=== PATIENT | female | born 1990 | race Caucasian/White ===

== ENCOUNTER 2018-02-01 19:32 | Emergency (ER) | payer OTHER ==
[~2018-02-01] VITALS: Ht 190.5 cm; Wt 138.3 kg
[2018-02-01 19:59] LABS: ABSOLUTE BASOPHILS 0.1 thou/uL (0.0-0.2); ABSOLUTE EOSINOPHILS 0.2 thou/uL (0.0-0.7); ABSOLUTE LYMPHOCYTES 3.1 thou/uL (0.8-5.3); ABSOLUTE MONOCYTES 0.6 thou/uL (0.0-1.2); ABSOLUTE NEUTROPHILS 5.6 thou/uL (1.6-8.1); BASOPHILS 0.9 %; EOSINOPHILS 2.2 %; HEMATOCRIT 39.5 % (37.0-47.0); HEMOGLOBIN 13.3 gm/dL (12.0-15.0); MCH 29.4 pg (26.0-34.0); MCHC 33.8 g/dL (28.0-37.0); MCV 87.2 fL (80.0-100.0); MONOCYTES 6.4 %; MPV 7.3 fl. (7.2-11.1); NUCLEATED RBCS 0 /100WBC; PLATELET COUNT* 352 thou/uL (150-400); POLYS 58.5 %; RBC 4.54 mil/uL (4.20-5.00); WBC 9.5 thou/uL (4.0-11.0)
[2018-02-01] MEDS ORDERED: MACROBID 100 M100 M2 PO (19:59)
[2018-02-01] MEDS ORDERED: MOBIC15 MG PO (19:59)
[2018-02-01 20:11] LABS: CALCIUM 8.4 mg/dL (8.5-10.1); CREATININE 0.8 mg/dL (0.6-1.3); POTASSIUM 3.4 mmol/L (3.5-5.1)
[2018-02-01 20:15] LABS: ALBUMIN 3.4 g/dL (3.4-5.0); TOTAL BILIRUBIN 0.9 mg/dL (<0.1-1.0); TOTAL PROTEIN 6.2 g/dL (6.4-8.2)
[2018-02-01 20:18] LABS: URINE BILIRUBIN NEGATIVE (Negative); URINE BLOOD NEGATIVE (Negative); URINE CLARITY CLEAR; URINE COLOR YELLOW; URINE GLUCOSE-RANDOM NEGATIVE (Negative); URINE KETONES NEGATIVE (Negative); URINE LEUKOCYTES-REFLEX NEGATIVE (Negative); URINE NITRITE-REFLEX NEGATIVE (Negative); URINE PROTEIN NEGATIVE (Negative); URINE SPECIFIC GRAVITY 1.025 (1.005-1.030); URINE UROBILINOGEN 0.2 E.U./dl (0.2-1.0)
[2018-02-01] MEDS ORDERED: PREDNISONE50 MG PO (20:51)
[2018-02-01 21:09] VITALS: BP 134/83
== END 2018-02-01 21:10 | disposition home or self-care (01) ==
LOC: M.ERS 19:32
PROVIDERS: Emergency Medicine
DX: T78.49XA Other allergy, initial encounter (principal); E28.2 Polycystic ovarian syndrome; E11.9 Type 2 diabetes mellitus without complications; Z90.711 Acquired absence of uterus with remaining cervical stump; Z88.1 Allergy status to other antibiotic agents; Z88.0 Allergy status to penicillin; Z88.8 Allergy status to other drugs, medicaments and biological substances; X58.XXXA Exposure to other specified factors, initial encounter

== ENCOUNTER 2018-03-05 22:09 | Emergency (ER) | payer OTHER ==
[~2018-03-05] VITALS: Ht 190.5 cm; Wt 140.6 kg
[~2018-03-05 22:09] MED LIST: MACROBID 100 M100 M2 PO; MOBIC15 MG PO; PREDNISONE50 MG PO
[2018-03-05] MEDS ORDERED: PIOGLITAZONE15 MG (22:24)
[2018-03-05] MEDS ORDERED: VENTOLIN HFA 1818 GM INH (22:24)
[2018-03-05] MEDS ORDERED: VANCOCIN 125 M125 M1 (22:25)
[2018-03-05] MEDS ORDERED: PREDNISONE 20 M20 M1 PO (23:41)
[2018-03-05] MEDS ORDERED: PROAIR HFA8.5 GM INH ×2 (23:41→23:46)
[2018-03-05 23:53] VITALS: BP 157/103
== END 2018-03-05 23:56 | disposition home or self-care (01) ==
LOC: M.ERS 22:09
DX: T78.1XXA Other adverse food reactions, not elsewhere classified, initial encounter (principal); E11.9 Type 2 diabetes mellitus without complications; E28.2 Polycystic ovarian syndrome; Z90.711 Acquired absence of uterus with remaining cervical stump; Z88.1 Allergy status to other antibiotic agents; Z88.0 Allergy status to penicillin; Z91.018 Allergy to other foods; X58.XXXA Exposure to other specified factors, initial encounter

== ENCOUNTER 2018-06-17 21:15 | Emergency (ER) | payer OTHER ==
[~2018-06-17] VITALS: Ht 190.5 cm; Wt 132.0 kg
[~2018-06-17 21:15] MED LIST changes: +PIOGLITAZONE15 MG; +PREDNISONE 20 M20 M1 PO; +PROAIR HFA8.5 GM INH; +VANCOCIN 125 M125 M1; +VENTOLIN HFA 1818 GM INH
[2018-06-17] MEDS ORDERED: AMLODIPINE BESY10 MG PO (21:43)
[2018-06-17] MEDS ORDERED: GLIMEPIRIDE4 MG PO (21:43)
[2018-06-17] MEDS ORDERED: LEVEMIR SUBQ (21:43)
[2018-06-17] MEDS ORDERED: ZANTAC 150MG T150 M1 PO (21:43)
[2018-06-18 00:37] LABS: HEMATOCRIT 41.4 % (37.0-47.0); HEMOGLOBIN 14.2 gm/dL (12.0-15.0); MCH 28.6 pg (26.0-34.0); MCHC 34.2 g/dL (28.0-37.0); MCV 83.7 fL (80.0-100.0); MPV 7.5 fl. (7.2-11.1); NUCLEATED RBCS 0 /100WBC; PLATELET COUNT* 409 thou/uL (150-400); RBC 4.95 mil/uL (4.20-5.00); RDW-CV 12.4 % (10.5-14.5); WBC 17.3 thou/uL (4.0-11.0)
[2018-06-18 00:48] LABS: ANION GAP 18 mmol/L (7-16); BUN 24 mg/dL (7-18); CALCIUM 10.5 mg/dL (8.5-10.1); CHLORIDE 100 mmol/L (98-107); CO2 17 mmol/L (21-32); CREATININE 1.4 mg/dL (0.6-1.3); GLUCOSE 197 mg/dL (70-99); POTASSIUM 4.1 mmol/L (3.5-5.1); SODIUM 135 mmol/L (136-145)
[2018-06-18 00:52] LABS: ALBUMIN 4.5 g/dL (3.4-5.0); ALKALINE PHOSPHATASE 123 U/L (46-116); LIPASE 118 U/L (73-393); MAGNESIUM 1.6 mg/dL (1.8-2.4); SGOT 36 U/L (15-37); SGPT 63 U/L (30-65); TOTAL BILIRUBIN 1.8 mg/dL (<0.1-1.0); TOTAL PROTEIN 8.1 g/dL (6.4-8.2)
[2018-06-18 01:40] VITALS: BP 155/81
[2018-06-18 02:48] LABS: ABSOLUTE BASOPHILS 0.2 thou/uL (0.0-0.2); ABSOLUTE LYMPHOCYTES 1.4 thou/uL (0.8-5.3); ABSOLUTE MONOCYTES 0.7 thou/uL (0.0-1.2); ABSOLUTE NEUTROPHILS 15.1 thou/uL (1.6-8.1)
[2018-06-18 02:49] LABS: PLATELET ESTIMATE INCREASED
[2018-06-18 02:50] LABS: LARGE PLATELETS RARE
== END 2018-06-18 01:40 | disposition left against medical advice (07) ==
LOC: M.ERS 21:15
PROVIDERS: Personal Emergency Response Attendant
DX: R11.2 Nausea with vomiting, unspecified (principal); R06.02 Shortness of breath; E10.9 Type 1 diabetes mellitus without complications; E28.2 Polycystic ovarian syndrome; Z90.711 Acquired absence of uterus with remaining cervical stump; Z88.1 Allergy status to other antibiotic agents; Z88.0 Allergy status to penicillin; Z91.018 Allergy to other foods; Z88.8 Allergy status to other drugs, medicaments and biological substances